=== PATIENT | male | born 1990 | race Caucasian/White ===

== ENCOUNTER 2017-02-24 13:51 | Emergency (ER) | payer OTHER ==
[2017-02-24 14:14] VITALS: BP 136/87
[2017-02-24] MEDS ORDERED: MOTRIN PO ONE (15:41)
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
== END 2017-02-24 17:03 | disposition home or self-care (01) ==
LOC: ED 13:51
DX: S13.4XXA Sprain of ligaments of cervical spine, initial encounter (principal); I10 Essential (primary) hypertension; V89.2XXA Person injured in unspecified motor-vehicle accident, traffic, initial encounter; Y93.89 Activity, other specified; Y92.89 Other specified places as the place of occurrence of the external cause; Y99.8 Other external cause status
CPT/HCPCS: 99282